=== PATIENT | male | born 1995 | race Caucasian/White ===

== ENCOUNTER 2021-01-06 08:22 | Emergency (ER) | payer BC ==
[~2021-01-06] VITALS: Ht 180.3 cm; Wt 95.4 kg
[2021-01-06 08:24] VITALS: BP 120/83
[2021-01-06] MEDS ORDERED: amox tr/potassium clavulanate 875/125mg TAB PO ONE (09:00)
[2021-01-06] MEDS ORDERED: TETanus/Pertussis (Acell)/Diphther VAC/PF (Tdap-Adult) 0.5ml syringe IMVAC ONE (09:00)
[2021-01-06] MEDS ORDERED: AMOX-422 PO (09:01)
[2021-01-06] MEDS: ondansetron 4mg rapidly disintigrating tab PO ONE ×2 (09:37→09:45)
== END 2021-01-06 09:51 | disposition home or self-care (01) ==
LOC: ER 08:22
DX: L03.113 Cellulitis of right upper limb (principal); R22.31 Localized swelling, mass and lump, right upper limb; Z79.2 Long term (current) use of antibiotics; W55.01XA Bitten by cat, initial encounter; Y93.89 Activity, other specified; Y92.89 Other specified places as the place of occurrence of the external cause; Y99.8 Other external cause status
CPT/HCPCS: 90471; 90715; 99283